=== PATIENT | female | born 1980 | race Caucasian/White ===

== ENCOUNTER → 2019-12-28 | Emergency (ER) | payer OTHER ==
[~2019-12-28] VITALS: Ht 152.4 cm; Wt 59.0 kg
[2019-12-28 14:13] VITALS: BP 119/65
== END ==
LOC: ER 14:09
DX: R51 Headache (principal); M54.9 Dorsalgia, unspecified; M79.605 Pain in left leg; Z53.21 Procedure and treatment not carried out due to patient leaving prior to being seen by health care provider; V89.2XXA Person injured in unspecified motor-vehicle accident, traffic, initial encounter; Y93.I9 Activity, other involving external motion; Y92.488 Other paved roadways as the place of occurrence of the external cause; Y99.8 Other external cause status